=== PATIENT | female | born 1960 | race Two or more races ===

== ENCOUNTER 2022-09-09 07:31 | Outpatient (CLI) | payer OTHER | END 2022-09-09 07:38 | disposition home or self-care (01) | LOC: NUCLEAR 07:31 | PROVIDERS: ATTEND Internal Medicine | DX: I11.9 Hypertensive heart disease without heart failure (principal); I25.118 Atherosclerotic heart disease of native coronary artery with other forms of angina pectoris; R07.9 Chest pain, unspecified; E78.2 Mixed hyperlipidemia ==